=== PATIENT | female | born 1980 | race Caucasian/White ===

== ENCOUNTER 2017-07-23 16:49 | Observation (INO) ==
[2017-07-23 18:29] LABS: Basophils % 0.3 %; Eosinophils # 0.1 K/mcL (0.0-0.6); Eosinophils % 0.8 %; Hematocrit 42.1 % (35.3-44.9); Hemoglobin 14.4 g/dL (11.5-15.4); Immature Granulocytes % 0.2 % (0-4); Immature Platelets 2.3 % (1.1-6.1); Lymphocytes # 2.4 K/mcL (0.6-4.6); Lymphocytes % 24.1 %; Mean Corpuscular HGB Conc 34.2 g/dL (31.6-35.5); Mean Corpuscular Hemoglobin 30.4 pg (28.0-33.3); Mean Corpuscular Volume 88.8 fL (83.0-100.0); Mean Platelet Volume 9.7 fL (9.4-12.4); Monocytes # 0.7 K/mcL (0.0-1.3); Monocytes % 6.9 %; Neutrophils # 6.8 K/mcL (1.6-8.9); Platelet Count 229 K/mcL (140-400); Red Blood Count 4.74 M/mcL (3.82-4.97); Red Cell Distribution Width 12.6 % (11.5-14.5); Segmented Neutrophils % 67.7 %
--- NOTE | 2017-07-23 18:29 | Emergency Department Note ---
Disposition Clinical Impression: Chest pain Qualifiers: Chest pain type: unspecified Qualified Code(s): R07.9 - Chest pain, unspecified Disposition: Still a Patient Condition: Good Referrals: NONE,PCP [Primary Care Provider] - Forms: ED Satisfaction Letter General Adult HPI - General Chief complaint: ED Arrhythmia/Palpitations Stated complaint: SVT Time Seen by Provider: 07/23/17 17:59 Source: patient Limitations: no limitations Nursing Notes Reviewed: Yes Vital Signs Reviewed: Yes - History of Present Illness HPI Narrative: Patient presents for evaluation of rapid heart rate and chest pain. Patient states that she developed chest pain at about 3:30 PM. She states that she had had 20 minutes of a heart rate between 140 and 160. She is concerned about SVT. She has no history of SVT. She has no family history is at CT. The symptoms did not resolve with vagal maneuvers. Symptoms will hold on their own. 20 minutes after her rapid heart rate she developed what she describes as a pressure in her chest that radiates to the back. Described as dull. Nothing makes it better or worse. Not worse with inspiration. Not worse with exertion. No associated diaphoresis or nausea. Pain Scale: 4 - Related Data Allergies Allergy/AdvReac Type Severity Reaction Status Date / Time Penicillins [PCN] Allergy Rash Verified 07/23/17 16:54 Review of Systems: CONSTITUTIONAL: No weight loss, fever, chills, weakness or fatigue. HEENT: Eyes: No visual changes. Ears, Nose, Throat: No hearing loss, difficulty talking or unable to swallow. SKIN: No rash or itching. CARDIOVASCULAR: Chest pain and rapid heart rate RESPIRATORY: No shortness of breath, cough or sputum. GASTROINTESTINAL: No anorexia, nausea, vomiting or diarrhea. No abdominal pain or blood. GENITOURINARY: No burning on urination or hematuria. NEUROLOGICAL: No headache, dizziness, syncope, paralysis, ataxia, numbness or tingling in the extremities. No change in bowel or bladder control. MUSCULOSKELETAL: No muscle pain, back pain, joint pain or stiffness. Past Medical History - Past Medical History Medical history: Reports: no medical history Psychiatric history: Reports: no psych history - Social History Smoking Status: Current every day smoker Smokeless Tobacco Status: No Alcohol use: Reports: none Drug use: Reports: none Physical Exam General: Well appearing, nontoxic, no acute distress Head: Normocephalic Atraumatic Eyes: PERRL, EOMI ENT: Airway patent, no stridor Neck: supple, no meningismus Chest: Lungs clear to auscultation bilateral Cardiac: Regular rate and rhythm, no murmurs, rubs or gallops Abdomen: soft, nontender, nondistended; no guarding, rebound, or tenderness to percussion Musculoskeletal: Calves symmetric, nontender, no palpable cord Skin: No rash, normal skin tone Neuro: Alert and Oriented to person, place, and time; No focal deficit, CN 2-12 symmetric and intact - General Limitations: no limitations General appearance: alert, in no apparent distress Course - Reevaluation(s) Reevaluation #1: Patient will be signed out to the night team. Labs pending. Vital Signs Temperature 98.0 F 07/23/17 16:50 Pulse Rate 90 07/23/17 16:50 Respiratory Rate 16 07/23/17 16:50 Blood Pressure 144/76 07/23/17 16:50 O2 Sat by Pulse Oximetry 100 07/23/17 16:50 Temperature 98.0 F 07/23/17 16:50 Pulse Rate 90 07/23/17 16:50 Respiratory Rate 16 07/23/17 16:50 Blood Pressure 144/76 07/23/17 16:50 O2 Sat by Pulse Oximetry 100 07/23/17 16:50 Oxygen Delivery Oxygen Delivery Room Air Medical Decision Making - Medical Records Medical records reviewed: Yes I reviewed the patient's medical records. - Lab Data Lab results reviewed: Yes I reviewed the patient's lab results. Result diagrams: 07/23/17 18:03 07/23/17 18:03 Lab Results 07/23/17 07/23/17 07/23/17 Range/Units 18:03 18:03 18:03 WBC 10.1 (4.3-11.1) K/mcL RBC 4.74 (3.82-4.97) M/mcL Hgb 14.4 (11.5-15.4) g/dL Hct 42.1 (35.3-44.9) % MCV 88.8 (83.0-100.0) fL MCH 30.4 (28.0-33.3) pg MCHC 34.2 (31.6-35.5) g/dL RDW 12.6 (11.5-14.5) % Plt Count 229 (140-400) K/mcL MPV 9.7 (9.4-12.4) fL Immature Gran % 0.2 (0-4) % Seg Neutrophils % 67.7 % Lymphocytes % 24.1 % Monocytes % 6.9 % Eosinophils % 0.8 % Basophils % 0.3 % Neutrophils # 6.8 (1.6-8.9) K/mcL Lymphocytes # 2.4 (0.6-4.6) K/mcL Monocytes # 0.7 (0.0-1.3) K/mcL Eosinophils # 0.1 (0.0-0.6) K/mcL Basophils # 0.0 (0.0-0.2) K/mcL Immature Plt Fraction 2.3 (1.1-6.1) % D-Dimer (0-500) ng/mLFEU Sodium 138 (136-145) mEq/L Potassium 3.6 (3.5-5.1) mEq/L Chloride 106 (98-107) mEq/L Carbon Dioxide 24 (23-29) mEq/L BUN 12 (6-20) mg/dL Creatinine 0.83 (0.60-1.20) mg/dL Est GFR ( Amer) > 60 (> 60) Est GFR (Non-Af Amer) > 60 (> 60) BUN/Creatinine Ratio 14 (6-26) Glucose 86 (70-105) mg/dL Calculated Osmolality 285 (280-300) Calcium 9.1 (8.6-10.3) mg/dL Magnesium (1.6-2.6) mg/dL Troponin I 0.06 H* (< 0.04) ng/mL Serum , Qual (Negative) 07/23/17 07/23/17 07/23/17 Range/Units 18:34 18:35 18:35 WBC (4.3-11.1) K/mcL RBC (3.82-4.97) M/mcL Hgb (11.5-15.4) g/dL Hct (35.3-44.9) % MCV (83.0-100.0) fL MCH (28.0-33.3) pg MCHC (31.6-35.5) g/dL RDW (11.5-14.5) % Plt Count (140-400) K/mcL MPV (9.4-12.4) fL Immature Gran % (0-4) % Seg Neutrophils % % Lymphocytes % % Monocytes % % Eosinophils % % Basophils % % Neutrophils # (1.6-8.9) K/mcL Lymphocytes # (0.6-4.6) K/mcL Monocytes # (0.0-1.3) K/mcL Eosinophils # (0.0-0.6) K/mcL Basophils # (0.0-0.2) K/mcL Immature Plt Fraction (1.1-6.1) % D-Dimer 244 (0-500) ng/mLFEU Sodium (136-145) mEq/L Potassium (3.5-5.1) mEq/L Chloride (98-107) mEq/L Carbon Dioxide (23-29) mEq/L BUN (6-20) mg/dL Creatinine (0.60-1.20) mg/dL Est GFR ( Amer) (> 60) Est GFR (Non-Af Amer) (> 60) BUN/Creatinine Ratio (6-26) Glucose (70-105) mg/dL Calculated Osmolality (280-300) Calcium (8.6-10.3) mg/dL Magnesium 1.9 (1.6-2.6) mg/dL Troponin I (< 0.04) ng/mL Serum , Qual Negative (Negative) - Radiology Data Radiology results reviewed: Yes I reviewed the patient's radiology results. - EKG Data EKG #1 EKG attestation: Yes I reviewed and interpreted this EKG. EKG results narrative: EKG shows sinus rhythm with a ventricular rate of 78. [place] 126. QRS 97. QTC 404. Patient has concern for right bundle branch block. No previous EKG for comparison.
[2017-07-23 18:43] LABS: BUN/Creatinine Ratio 14 (6-26); Blood Urea Nitrogen 12 mg/dL (6-20); Calcium 9.1 mg/dL (8.6-10.3); Carbon Dioxide 24 mEq/L (23-29); Chloride 106 mEq/L (98-107); Glucose 86 mg/dL (70-105); Osmolality,Calculated 285 (280-300); Potassium 3.6 mEq/L (3.5-5.1); Sodium 138 mEq/L (136-145); eGFR For African Americans > 60 (> 60); eGFR For Non-African Americans > 60 (> 60)
--- NOTE | 2017-07-23 18:48 | Emergency Department Note ---
START Narrative - START START: I examined this patient and my medical decision-making was reviewed with the Resident Physician. I agree with the documented findings, disposition and treatment plan as described except to the extent set forth below. Patient presents to the ED complaining of tachycardia. Patient states she is working in her house and she felt her heart racing. She checked her watch her heart rate was 140s. It fluctuated up to the 180s. 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 Concern for SVT. She has no history of this. She did have a father had an MS in his late 30s. Plan. Cardiac workup. Patient's EKG is normal sinus with a normal [place]. Will sign out tonight shift.
[2017-07-23 18:57] LABS: Thyroid Stimulating Hormone 1.198 mcIU/mL (0.340-5.600)
[2017-07-23] MEDS ORDERED: Aspirin 81 MG TAB.CHEW PO STA (19:09)
--- NOTE | 2017-07-23 20:10 | Emergency Department Note ---
Disposition Clinical Impression: Elevated troponin I level Chest pain Qualifiers: Chest pain type: unspecified Qualified Code(s): R07.9 - Chest pain, unspecified Disposition: Admitted As Inpatient Condition: Fair Time of Disposition: 20:10 Arrhythmia/Palpitations HPI - General Chief Complaint: ED Arrhythmia/Palpitations Stated Complaint: SVT Time Seen by Provider: 07/23/17 17:59 Source: patient Limitations: no limitations - Related Data Allergies Allergy/AdvReac Type Severity Reaction Status Date / Time Penicillins [PCN] Allergy Rash Verified 07/23/17 16:54 Past Medical History - Past Medical History Medical history: Reports: no medical history Psychiatric history: Reports: no psych history - Social History Smoking Status: Current every day smoker Smokeless Tobacco Status: No Alcohol use: Reports: none Drug use: Reports: none Physical Exam - General Limitations: no limitations General appearance: alert, in no apparent distress Course Course Narrative: Briefly care was signed out from the day team Dr. lisa Lauren see their documentaiton, the patient had tachycardia 150s to 180s, responsive the vagal maneuvers she arrived by EMS concern for SVT no history of SVT but react history in her family, current smoker, patient is been sinus rhythm in the ED, given fluids did have an elevated troponin of 0.06 given an aspirin admitted the hospital service returning troponins are [facility] accepting Vital Signs Temperature 98.0 F 07/23/17 16:50 Pulse Rate 90 07/23/17 16:50 Respiratory Rate 16 07/23/17 16:50 Blood Pressure 144/76 07/23/17 16:50 O2 Sat by Pulse Oximetry 100 07/23/17 16:50 Temperature 98.0 F 07/23/17 16:50 Pulse Rate 88 07/23/17 19:26 Respiratory Rate 18 07/23/17 19:26 Blood Pressure 143/92 07/23/17 19:26 O2 Sat by Pulse Oximetry 99 07/23/17 19:26 Oxygen Delivery Oxygen Delivery Room Air Arrhythmia/Palpitations - Differential Diagnosis Differential Diagnosis: Likely: palpitations, sinus tachycardia, artial arrhythmia, ventricular premature beats - Medical Records Medical records reviewed: Yes I reviewed the patient's medical records. - Lab Data Lab results reviewed: Yes I reviewed the patient's lab results. Result diagrams: 07/23/17 18:03 07/23/17 18:03 Lab Results 07/23/17 07/23/17 07/23/17 Range/Units 18:03 18:03 18:03 WBC 10.1 (4.3-11.1) K/mcL RBC 4.74 (3.82-4.97) M/mcL Hgb 14.4 (11.5-15.4) g/dL Hct 42.1 (35.3-44.9) % MCV 88.8 (83.0-100.0) fL MCH 30.4 (28.0-33.3) pg MCHC 34.2 (31.6-35.5) g/dL RDW 12.6 (11.5-14.5) % Plt Count 229 (140-400) K/mcL MPV 9.7 (9.4-12.4) fL Immature Gran % 0.2 (0-4) % Seg Neutrophils % 67.7 % Lymphocytes % 24.1 % Monocytes % 6.9 % Eosinophils % 0.8 % Basophils % 0.3 % Neutrophils # 6.8 (1.6-8.9) K/mcL Lymphocytes # 2.4 (0.6-4.6) K/mcL Monocytes # 0.7 (0.0-1.3) K/mcL Eosinophils # 0.1 (0.0-0.6) K/mcL Basophils # 0.0 (0.0-0.2) K/mcL Immature Plt Fraction 2.3 (1.1-6.1) % D-Dimer (0-500) ng/mLFEU Sodium 138 (136-145) mEq/L Potassium 3.6 (3.5-5.1) mEq/L Chloride 106 (98-107) mEq/L Carbon Dioxide 24 (23-29) mEq/L BUN 12 (6-20) mg/dL Creatinine 0.83 (0.60-1.20) mg/dL Est GFR ( Amer) > 60 (> 60) Est GFR (Non-Af Amer) > 60 (> 60) BUN/Creatinine Ratio 14 (6-26) Glucose 86 (70-105) mg/dL Calculated Osmolality 285 (280-300) Calcium 9.1 (8.6-10.3) mg/dL Magnesium (1.6-2.6) mg/dL Troponin I 0.06 H* (< 0.04) ng/mL TSH 1.198 (0.340-5.600) mcIU/mL Serum , Qual (Negative) 07/23/17 07/23/17 07/23/17 Range/Units 18:34 18:35 18:35 WBC (4.3-11.1) K/mcL RBC (3.82-4.97) M/mcL Hgb (11.5-15.4) g/dL Hct (35.3-44.9) % MCV (83.0-100.0) fL MCH (28.0-33.3) pg MCHC (31.6-35.5) g/dL RDW (11.5-14.5) % Plt Count (140-400) K/mcL MPV (9.4-12.4) fL Immature Gran % (0-4) % Seg Neutrophils % % Lymphocytes % % Monocytes % % Eosinophils % % Basophils % % Neutrophils # (1.6-8.9) K/mcL Lymphocytes # (0.6-4.6) K/mcL Monocytes # (0.0-1.3) K/mcL Eosinophils # (0.0-0.6) K/mcL Basophils # (0.0-0.2) K/mcL Immature Plt Fraction (1.1-6.1) % D-Dimer 244 (0-500) ng/mLFEU Sodium (136-145) mEq/L Potassium (3.5-5.1) mEq/L Chloride (98-107) mEq/L Carbon Dioxide (23-29) mEq/L BUN (6-20) mg/dL Creatinine (0.60-1.20) mg/dL Est GFR ( Amer) (> 60) Est GFR (Non-Af Amer) (> 60) BUN/Creatinine Ratio (6-26) Glucose (70-105) mg/dL Calculated Osmolality (280-300) Calcium (8.6-10.3) mg/dL Magnesium 1.9 (1.6-2.6) mg/dL Troponin I (< 0.04) ng/mL TSH (0.340-5.600) mcIU/mL Serum , Qual Negative (Negative) Attestation Statement - Attestation Attestation: I, David Alberto MD, personally evaluated this patient and discussed their management with the resident physician. I reviewed the resident's note and agree with the documented findings, medical decision making, and plan of care. This patient was signed out at shift change from Dr. Saavedra and Dr. Lauren. Please refer to their notes for complete details of history and physical examination. Patient presented with an episode of tachycardia that lasted about 15 minutes. She had no chest pain or difficulty breathing with the tachycardia but after the tachycardia resolved spontaneously she developed some left-sided chest pain. No prior cardiac history. On examination patient is a well-developed well-nourished well-appearing female in no acute distress. She is alert and oriented 3. There is no cyanosis or diaphoresis. Chest is nontender to palpation. Breath sounds are clear and equal bilaterally. Heart regular rate and rhythm. Abdomen soft and nontender with normal bowel sounds. Labs reviewed. Troponin 0.06. The hospitalist, Dr. Henson, was consulted and accepted admission of the patient.
[2017-07-23] MEDS ORDERED: Acetaminophen 325 MG TABLET PO PRN (21:22)
[2017-07-23] MEDS ORDERED: Naloxone 0.4 MG/ML INJ IVP PRN (21:22)
[2017-07-23] MEDS ORDERED: Ondansetron 4 MG/2 ML VIAL IVP PRN (21:22)
--- NOTE | 2017-07-23 21:28 | Internal Med History&Physical ---
Date of Encounter: 07/23/17 Time of Encounter: 21:27 Assessment and Plan (1) Tachycardia Current visit: Yes Status: Acute Resolved now. Possible episode of SVT? Continue Telemetry monitoring and cycle Troponins; mild leak likely related to tachycardia. Will start low dose beta ceci if tolerated. Check TTE. TSH noted to be normal. Cardiology consult. (2) Chest pain Current visit: Yes Status: Acute likely related to tachycardia; plan as above; Qualifiers: Chest pain type: precordial pain Qualified Code(s): R07.2 - Precordial pain Internal Medicine - H&P: HPI Chief complaint: Palpitations Admitted From: Emergency Dept Plans for Post Hospital Care: Home History of present illness: Ms. Salvador is a 37 year old female with no significant past medical history, presents with c/o- palpitations. Patient has been in her usual state of health until this morning when she started feeling nauseous with palpitations while at rest, and her Apple monitor/watch showed her DC 120-140, which lasted for several minutes and did not improve with vagal maneuvers. She had some retrosternal chest discomfort and shortness of breath after the episode but denies dizziness, syncope. SHe was noted to have normal heart rate by the time she arrived in the ER. No similar previous episodes. She denies fever/chills, vomiting, diarrhea, recent URTI treatment. No excess caffeine intake but she does have 6-7 drinks per week. No h/o- thyroid illness. Past Med Surg Social Fam HX - Past Medical History Medical history: no medical history Psychiatric history: no psych history - Past Surgical History Surgical History: no surgical history - Social History Smoking Status: Current every day smoker Packs per day: 1-2 cigarettes/day Smokeless Tobacco Status: No Alcohol use: none, occasionally (6-7 drinks/week) Drug use: none Occupational status: employed Current living situation: Home, With Family Activity Level: Independent ambulation Recent Out of Country Travel Within the Last 8 Weeks: No Exposure or Possible Exposure to Illness During Travel: No - Family History Father Living Status: Age at : 74 Hx Family Cardiac Disorders: Yes (PR) Hx Family Respiratory Disorders: No Hx Family Cancer: Yes (Lymphoma, prostate) Hx Family GI Disorders: No Hx Family Genitourinary Disorders: No Hx Family Endocrine Disorder: No Hx Family Musculoskeletal Disorders: No Hx Family Neuromuscular Disorders: No Hx Family Neurologic Disorders: No Hx Family HEENT Disorders: No Hx Family Autoimmune Disorders: No Hx Family Reproductive Disorders: No Hx Family Psychosocial Disorders: No Hx Family Medical Disorders: No Mother Living Status: Age at : 51 Cause of : leiomyosarcoma Hx Family Cardiac Disorders: No Hx Family Respiratory Disorders: No Hx Family Cancer: Yes (leiomyosarcoma) Hx Family GI Disorders: No Hx Family Genitourinary Disorders: No Hx Family Endocrine Disorder: Yes (Thyroid disease) Hx Family Musculoskeletal Disorders: No Hx Family Neuromuscular Disorders: No Hx Family Neurologic Disorders: No Hx Family HEENT Disorders: No Hx Family Autoimmune Disorders: No Hx Family Reproductive Disorders: No Hx Family Psychosocial Disorders: No Hx Family Medical Disorders: No Internal Medicine - H&P: Meds No Known Home Drugs 07/23/17 [History] 3 Allergy/AdvReac Type Severity Reaction Status Date / Time Penicillins [PCN] Allergy Rash Verified 07/23/17 16:54 All Systems PM: A 10-system review of systems was performed and is negative for pertinent findings except as documented above in the HPI. - Constitutional Constitutional: no chills, no fever(s), no night sweats - EENT Eyes: no change in vision, no discharge, no pain, no photophobia Ears: no ear discharge, no ear pain, no tinnitus Nose, mouth and throat: no dysphagia, no nasal discharge, no neck pain, no sore throat - Cardiovascular Cardiovascular ROS IM: chest pain, dyspnea, palpitations - Respiratory Respiratory: no cough, no dyspnea, no wheezing, no excessive phlegm production - Gastrointestinal Gastrointestinal: nausea - Genitourinary Genitourinary: no change in urinary stream, no dysuria, no flank pain, no hematuria - Musculoskeletal Musculoskeletal ROS IM: no numbness, no tingling - Integumentary Integumentary IM: no rash, no unusual bruising - Neurological Neurological ROS: no confusion, no convulsions, no focal weakness, no numbness, no tingling, no tremor(s) - Hematologic/Lymphatic Hematologic/Lymphatic: no easy bruising - Constitutional Vitals: Temp Pulse Resp BP Pulse Ox 98.0 F 84 18 115/72 98 07/23/17 16:50 07/23/17 20:35 07/23/17 20:35 07/23/17 20:35 07/23/17 20:35 General appearance: Present: A&O X 3, answers questions appropriately - Respiratory Respiratory exam: Present: CTAB. Absent: accessory muscle use, rales, rhonchi, wheezes - Cardiovascular Cardiovascular exam: Present: RRR, +S1, +S2, systolic murmur. Absent: diastolic murmur, gallop, rubs - GI/Abdominal GI/Abdominal exam: Present: normal bowel sounds, soft, no peritoneal signs. Absent: distended, tenderness - Extremities Exam Extremities exam: Present: full ROM, warm, radial pulses palpable and symmetrical. Absent: calf tenderness, cyanotic, pedal edema - Neurological Exam Neurological exam: Present: CN II-XII intact, oriented X3, no focal deficits. Absent: pronater drift, facial droop, speech deficit - Skin Skin exam: Present: dry, intact Internal Med - H&P Results - Labs CBC & Chem 7: 07/23/17 18:03 07/23/17 18:03 - EKG Data -: EKG Interpreted by Myself EKG shows normal: sinus rhythm (RBBB, incomplete) Rate: normal
[2017-07-23] MEDS ORDERED: Melatonin 3 MG TABLET PO PRN (23:41)
[2017-07-24 01:23] LABS: Basophils % 0.4 %; Eosinophils # 0.1 K/mcL (0.0-0.6); Eosinophils % 1.2 %; Hematocrit 38.4 % (35.3-44.9); Immature Granulocytes % 0.2 % (0-4); Lymphocytes % 36.3 %; Mean Corpuscular HGB Conc 33.1 g/dL (31.6-35.5); Mean Corpuscular Hemoglobin 29.8 pg (28.0-33.3); Mean Corpuscular Volume 90.1 fL (83.0-100.0); Mean Platelet Volume 9.9 fL (9.4-12.4); Monocytes # 0.6 K/mcL (0.0-1.3); Monocytes % 7.1 %; Neutrophils # 4.5 K/mcL (1.6-8.9); Platelet Count 211 K/mcL (140-400); Red Blood Count 4.26 M/mcL (3.82-4.97); Red Cell Distribution Width 12.6 % (11.5-14.5); Segmented Neutrophils % 54.8 %
[2017-07-24 01:27] LABS: Hemoglobin 12.7 g/dL (11.5-15.4)
[2017-07-24 01:37] LABS: BUN/Creatinine Ratio 13 (6-26); Blood Urea Nitrogen 11 mg/dL (6-20); Calcium 8.8 mg/dL (8.6-10.3); Carbon Dioxide 28 mEq/L (23-29); Chloride 107 mEq/L (98-107); Chol/HDL Ratio 2.9 (0-4.9); Cholesterol 149 mg/dL (< 200); Glucose 81 mg/dL (70-105); HDL Cholesterol 51 mg/dL (40-59); LDL Cholesterol,Calculated 82 mg/dL (0-99); Osmolality,Calculated 288 (280-300); Potassium 3.6 mEq/L (3.5-5.1); Sodium 140 mEq/L (136-145); Triglycerides 78 mg/dL (< 150); eGFR For African Americans > 60 (> 60); eGFR For Non-African Americans > 60 (> 60)
--- NOTE | 2017-07-24 09:30 | Cardiology Consult Note ---
Date of Encounter: 07/24/17 Time of Encounter: 09:30 Assessment and Plan (1) Tachycardia Current Visit: Yes Status: Acute Had an episode at home with HR from 140-160; concern for SVT. Unrelieved by vagal maneuvers. No prior history of SVT. EKG demonstrated ventricular rate 78, concern for RBBB. Elevated troponin is 0.06. TSH and d-dimer were within normal limits. Plan: -Lopressor 12.5 mg PO BID. -Continuous cardiac monitoring. -Echocardiogram has been ordered (2) Elevated troponin I level Current Visit: Yes Status: Acute -Likely secondary to rapid heart rate. -First troponin was 0.06; has since decreased to less than 0.03. -Likely secondary to ACS; ischemic workup if abnormal echo; worsening symptoms. -Continue to trend troponins. (3) Chest pain Current Visit: Yes Status: Acute Initially described retrosternal chest pain described as a dull, pressure-like sensation radiating to the back. No exacerbating or relieving factors. The patient was given an aspirin upon arrival to the emergency department. Chest pain is since resolved. Plan: -Continue to trend troponins. -Continuous cardiac monitoring. Qualifiers: Chest pain type: precordial pain Qualified Code(s): R07.2 - Precordial pain Discussion w patient/family: The assessment and plan as outlined above was discussed with the patient and/or family members who expressed understanding and agreement. All questions were answered. Thank you for involving us in the care of your patient. Please call with any questions. History of Present Illness Consult date: 07/24/17 Chief complaint: Chest pain History of present illness: Ms. Salvador is a 37 year old female who presented to the ED for the evaluation of rapid heart rate and chest pain. Patient states that earlier in the day, she had a 20 minute episode of a rapid heart rate between 140 and 160. Patient was able to see her heart rate on her Apple watch. Patient was concerned about the possibility of SVT. She has no known history of SVT or any other cardiac disease. 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 Approximately 20 minutes after her rapid heart rate, patient developed chest pain at approximately 3:30 p.m. Described as a dull, pressure-like sensation radiating into the back. No exacerbating or relieving factors. No associated nausea or diaphoresis. Patient did have a father that had an ID in his late 30s. Upon arrival to the hospital, patient's pulse was 90. All other vital signs were within normal limits. Laboratory examination demonstrated an elevated troponin at 0.06. TSH was 1.198 and d-dimer was 244. EKG demonstrated a sinus rhythm with ventricular rate of 78 bpm. Possible concern for right bundle branch block. There is no previous EKG for comparison. Patient was given an aspirin. Patient seen and examined at bedside this morning. Reports intermittent chest discomfort, 3/10. No exacerbating/relieving factors. Denies any palpitations since admission. No other complaints at this time. Past Med Surg Social Fam HX - Past Medical History Medical history: no medical history Psychiatric history: no psych history - Past Surgical History Surgical History: no surgical history - Social History Smoking Status: Current every day smoker Packs per day: 1-2 cigarettes/day Smokeless Tobacco Status: No Alcohol use: none, occasionally (6-7 drinks/week) Drug use: none - Family History Father Living Status: Age at : 74 Hx Family Cardiac Disorders: Yes (ID) Hx Family Respiratory Disorders: No Hx Family Cancer: Yes (Lymphoma, prostate) Hx Family GI Disorders: No Hx Family Genitourinary Disorders: No Hx Family Endocrine Disorder: No Hx Family Musculoskeletal Disorders: No Hx Family Neuromuscular Disorders: No Hx Family Neurologic Disorders: No Hx Family HEENT Disorders: No Hx Family Autoimmune Disorders: No Hx Family Reproductive Disorders: No Hx Family Psychosocial Disorders: No Hx Family Medical Disorders: No Mother Living Status: Age at : 51 Cause of : leiomyosarcoma Hx Family Cardiac Disorders: No Hx Family Respiratory Disorders: No Hx Family Cancer: Yes (leiomyosarcoma) Hx Family GI Disorders: No Hx Family Genitourinary Disorders: No Hx Family Endocrine Disorder: Yes (Thyroid disease) Hx Family Musculoskeletal Disorders: No Hx Family Neuromuscular Disorders: No Hx Family Neurologic Disorders: No Hx Family HEENT Disorders: No Hx Family Autoimmune Disorders: No Hx Family Reproductive Disorders: No Hx Family Psychosocial Disorders: No Hx Family Medical Disorders: No Medications and Allergies No Known Home Drugs 07/23/17 [History] 3 Allergy/AdvReac Type Severity Reaction Status Date / Time Penicillins [PCN] Allergy Rash Verified 07/23/17 16:54 All Systems Review: A 10-system review of systems was performed and is negative for pertinent findings except as documented above in the HPI. - Constitutional Constitutional: no frequent falls, no headache(s), no lethargy - Cardiovascular Cardiovascular: no dyspnea at rest, no dyspnea on exertion, no irregular heart rhythm, no radiating jaw, neck or arm pain Physical Examination Vital Signs, Last 4 Hours Temp Pulse Resp BP Pulse Ox 07/24/17 06:37 98.7 F 59 18 93/56 98 General: Conversant, No Apparent Distress HEENT: Atraumatic, Normocephaly, Mucus Membranes Moist Neck: No JVD, Normal carotid pulses Cardiac: Reg Rate and Rhythm, Normal S1 and S2, No Murmur Lungs: Normal Breath Sounds, No Wheeze, Rales, Rhonchi Neuro: Alert and responsive, No focal deficits noted Abdomen: Soft, Non-Tender Skin: No rashes noted on visualized skin Musculoskeletal: No Chest Wall Tenderness Extremities: No Clubbing, No Cyanosis, No Edema, Normal Pulses Results 07/24/17 00:24 07/24/17 00:24 Lab Results 07/24/17 07/24/17 07/24/17 00:24 00:24 00:24 WBC 8.2 Hgb 12.7 D Hct 38.4 Plt Count 211 Sodium 140 Potassium 3.6 Chloride 107 Carbon Dioxide 28 BUN 11 Creatinine 0.88 Glucose 81 Calcium 8.8 Troponin I 0.04 H* 07/24/17 06:18 WBC Hgb Hct Plt Count Sodium Potassium Chloride Carbon Dioxide BUN Creatinine Glucose Calcium Troponin I < 0.03 Consult Discharge Plan - Plan Referrals: NONE,PCP [Primary Care Provider] -
--- NOTE | 2017-07-24 14:30 | Discharge Summary ---
Date of Encounter: 07/24/17 Time of Encounter: 09:45 - Discharge Diagnosis (1) Chest pain Priority: Primary Status: Acute Comments: Patient reports midsternal chest pain/pressure with radiation into her back. No radiation to neck, arm, or jaw. Chest pain occurred approximately 15 minutes after episode of tachycardia. Patient denies chest pain since arrival. Initial troponin was elevated, has returned to normal. Initial troponin 0.04, subsequent troponins 0.03. Echocardiogram showed preserved EF and no significant valvular dysfunction. Patient has been evaluated by cardiology and will be started on metoprolol 12.5 mg by mouth daily. They have signed off. TSH and d-dimer were within normal limits. Chest X-Ray 07/23/17 18:16 IMPRESSION: No acute cardiopulmonary process. D/ / Zack Latham MD / Zack Latham MD Interpreting Provider: Zack Latham MD Qualifiers: Chest pain type: precordial pain Qualified Code(s): R07.2 - Precordial pain (2) Elevated troponin I level Priority: Secondary Status: Acute Comments: Flat, adynamic troponin elevation, most likely secondary to demand ischemia from tachycardia. Levels have returned to normal. Plan as above. (3) Tachycardia Priority: Secondary Status: Acute Comments: Patient reports feeling something like anxiety, her apple watch showed heart rate 140-180. The tachycardia was unchanged with vagal maneuvers. Patient has been started on Lopressor 12.5 mg by mouth twice a day. Echocardiogram within normal limits with preserved EF and no valvular dysfunction. EKG was normal sinus with a rate of 78, pulse was in the 90s on arrival to the emergency department. The residential service technician, patient was offered an ablation, she chose to try the medication first. Continue Lopressor. Cardiology has been consulted (4) DVT prophylaxis Priority: Secondary Status: Acute Comments: Patient has been ambulatory. - Discharge Medications Prescriptions: Metoprolol [Lopressor] 12.5 mg PO BID #60 tablet Home Medications: Metoprolol [Lopressor] 12.5 mg PO BID #60 tablet 07/24/17 [Rx] Allergies/Adverse Reactions: 3 Allergy/AdvReac Type Severity Reaction Status Date / Time Penicillins [PCN] Allergy Rash Verified 07/23/17 16:54 Procedures/tests Complete & Pending: Procedures Performed prior 72 hours Category Date Time Status EV echocardiogram Routine Y 07/24/17 21:23 Completed Date of admission: 07/23/17 19:58 Primary care physician: PCP BRISEYDA Consults: 07/23/17 21:23 Consult to Cardiology [CONS] Routine Comment: Consulting Provider: Cardiology Lily Reason for Consult: Had episode of tachycardia 120-140 at home, resolved in ER; Call Completed: No Discharging clinician: Shannon Nunez Anticipated date of discharge: 07/24/17 - Patient Status Disposition: Home, Self-Care Condition: Good Functional capacity at discharge: independent ambulation Overall status at discharge: patient is back to baseline - Discharge Instructions Follow Up With: NONE,PCP [Primary Care Provider] - Forms: ED Satisfaction Letter Additional Instructions: Please follow up with your PCP in the next 7-10 days for a recheck Return to the ER as needed for any other problem or concerns, or if your symptoms return or worsen. Resume your normal activities as tolerated, return to your normal diet as tolerated. - Diet and Activity Activity: increase activity as tolerated Diet: advance to your usual diet Hospital course: Ms. Salvador is a 37 year old female with no significant medical history who presented to the emergency department with complaint of approximately 20 minutes episode of tachycardia at home, afterward accompanied by midsternal chest pain with radiation to the back. She has been chest pain-free since arrival. She has been started on Lopressor 12.5 mg by mouth twice a day, patient's blood pressure and pulse was likely will not be able to tolerate taking this medication twice daily. She has been seen by cardiology. Echocardiogram with preserved EF and no valvular dysfunction. Troponins were initially elevated, have returned to baseline. Patient has no history of this in the past. She does report at times having some anxiety, however she did not feel that this was related to anxiety. Her labs are stable and vital signs are stable. She has been mildly hypotensive, she is asymptomatic. Patient is ready for discharge. - Time Spent with Patient Total time spent providing and/or coordinating discharge services: Less than 30 minutes - Constitutional Vitals: Temp Pulse Resp BP Pulse Ox 98.5 F 54 18 92/54 97 07/24/17 10:57 07/24/17 10:57 07/24/17 10:57 07/24/17 10:57 07/24/17 10:57 General appearance: Present: cooperative, A&O X 3, pleasant, no acute distress, answers questions appropriately - Head Head exam: Present: atraumatic, normal inspection, normocephalic - Eye Eye exam: Present: normal appearance, conjuntiva pink, sclera anicteric - Neck Neck exam general surgery: Present: normal inspection, supple, trachea midline. Absent: lymphadenopathy, tenderness - Respiratory Respiratory exam: Present: CTAB. Absent: accessory muscle use, rales, respiratory distress, rhonchi, wheezes - Cardiovascular Cardiovascular exam: Present: RRR, +S1, +S2. Absent: diastolic murmur, gallop, rubs, systolic murmur - GI/Abdominal GI/Abdominal exam: Present: normal bowel sounds, soft. Absent: distended, hepatomegaly, tenderness - Extremities Exam Extremities exam: Present: normal capillary refill, warm, radial pulses palpable and symmetrical. Absent: calf tenderness, cyanotic, pedal edema - Neurological Exam Neurological exam: Present: alert, oriented X3, no focal deficits. Absent: facial droop, speech deficit - Skin Skin exam: Present: dry, intact, normal color, warm. Absent: rash
[2017-07-24 15:17] VITALS: BP 93/58
--- NOTE | 2017-07-24 16:54 | Electrocardiograph Report ---
[place] [id number] Test Date: 2017-07-23 Pat Name: Brandy Salvador Department: 104 Room: 3B44 Gender: F Headline Writer: HELIO : 1980 Requested By: Thania See Order Number: [id number] Reading MD: Papi Calix DO Measurements Intervals [place] Rate: 78 P: 67 IL: 126 QRS: 54 QRSD: 97 T: 14 QT: 371 QTc: 404 Interpretive Statements SINUS RHYTHM INCOMPLETE RIGHT BUNDLE BRANCH BLOCK NONSPECIFIC T-WAVE ABNORMALITY Electronically Signed On 07-24-2017 16:52:10 EST by Papi Calix DO
== END 2017-07-24 17:46 | disposition home or self-care (01) ==
LOC: 3BNU 16:49 → EMEROO 16:49 → MERGE 19:58 → 3BNU 20:44
PROVIDERS: ADMIT Internal Medicine; ATTEND Registered Nurse